=== PATIENT | male | born 1940 | race Caucasian/White ===

== ENCOUNTER 2017-12-23 09:06 | Day surgery (SDC) | payer OTHER ==
[2017-12-23] MEDS ORDERED: MIDAZOLAM 1 MG/ML 2 ML INJ ×2 (11:37)
[2017-12-23] MEDS ORDERED: FENTAnyl 50 MCG/ML VIAL (11:38)
== END 2017-12-23 15:45 | disposition home or self-care (01) ==
LOC: GIL 09:06
DX: Z12.11 Encounter for screening for malignant neoplasm of colon (principal); K64.4 Residual hemorrhoidal skin tags; K57.90 Diverticulosis of intestine, part unspecified, without perforation or abscess without bleeding; I25.10 Atherosclerotic heart disease of native coronary artery without angina pectoris
CPT/HCPCS: 45378